=== PATIENT | male | born 1975 | race Caucasian/White ===

== ENCOUNTER 2023-04-18 14:46 | Emergency (ER) | payer BC, MEDICAID ==
--- NOTE | 2023-04-18 14:48 | ERPHSYRPT ---
- History of Present Illness Time Seen by Provider: 04/18/23 14:48 Source: patient Exam Limitations: no limitations Physician History: This is a 48-year-old white male patient who has had worsening tenderness right lower molars over the last few days. He rates his dental pain at 8 out of 10 with associated mild right facial swelling. Patient takes no medications chronically and he has no known drug allergies. Patient does have a ride and she is waiting in the parking lot for him. Patient has not made an appointment to see a dentist. Timing/Duration: gradual onset Severity: mild ENT Location: dental (To moderate right lower molars) Prearrival Treatment: no prearrival treatment Modifying Factors: Improves With: other (Mastication worsens) Associated Symptoms: denies symptoms Allergies/Adverse Reactions: No Known Drug Allergies Allergy (Verified 04/18/23 15:05) Travel Risk - International Travel Have you traveled outside of the country in past 3 weeks: No - Coronavirus Screening Are you exhibiting any of the following symptoms?: No Close contact with a COVID-19 positive Pt in past 14-21 Days: No - Review of Systems Constitutional: No Symptoms Eyes: No Symptoms Ears, Nose, & Throat: Other (Right lower) Respiratory: No Symptoms Cardiac: No Symptoms Abdominal/Gastrointestinal: No Symptoms Genitourinary Symptoms: No Symptoms Musculoskeletal: No Symptoms Skin: No Symptoms Neurological: No Symptoms Psychological: No Symptoms Endocrine: No Symptoms Hematologic/Lymphatic: No Symptoms Immunological/Allergic: No Symptoms All Other Systems: Reviewed and Negative - Past Medical History Pertinent Past Medical History: Yes - Past Surgical History Past Surgical History: Yes - Nursing Vital Signs Nursing Vital Signs: Initial Vital Signs Temperature 97.5 F 04/18/23 14:56 Pulse Rate 91 H 04/18/23 14:56 Blood Pressure 188/103 04/18/23 14:56 O2 Sat by Pulse Oximetry 98 04/18/23 14:56 Pain Scale Pain Intensity 7 - Physical Exam General Appearance: no apparent distress, alert Eye Exam: bilateral eye: normal inspection, PERRL, EOMI Ear Exam: bilateral ear: auricle normal Nasal Exam: normal inspection Throat Exam: dental tenderness, moist mucus membranes Neck Exam: normal inspection, non-tender (Right lower molars), supple, full range of motion Cardiovascular/Respiratory Exam: chest non-tender, no respiratory distress Abdominal Exam: non-tender Neurologic Exam: alert, oriented x 3, cooperative, gas meter prover II-XII nml as tested, normal mood/affect, nml cerebellar function, nml station & gait, sensation nml Skin Exam: normal color, warm, dry SpO2 Interpretation: normal O2 Delivery: Room Air - Course Nursing assessment & vital signs reviewed: Yes - Progress Progress: unchanged, pain not gone completely Progress Note: 04/18/23 15:54 This patient medical issue is 1 of low complexity. The level complex in the workup performed is based on review the patient's past medical history, review the patient's medication list, review the patient's drug allergies, history of present illness and physical findings on examination. This patient's workup does not require any laboratory or radiographic studies. Counseled pt/family regarding: diagnosis, need for follow-up Medical Desision Making - Diagnostic Testing Diagnostic test were ordered, analyzed, and reviewed by me: No - Risk of complications The pt has a mod risk of morbidity or mortality based on: Need for prescription drug management - Departure Departure Disposition: Home Clinical Impression: Pain due to dental caries Condition: Stable Critical Care Time: No Referrals: HUAN SHAH [Primary Care Provider] - Follow up/PCP as directed Additional Instructions: Use ibuprofen 600 mg 3 times a day and Tylenol 650 mg 3 times a day for pain control. Take your antibiotics as prescribed. Call a dentist tomorrow, 04/19/2023, to make arrangements for further evaluation and management for definitive care. Forms: Work/School Release Form Prescriptions: Amoxicillin 500 mg Cap [Amoxil 500 mg] 500 mg PO TID #30 cap
[2023-04-18 15:05] VITALS: BP 188/103; PULSE 91; TEMP 97.5; O2SAT 98
[2023-04-18] MEDS ORDERED: PERCOCET TABLET 5/325MG PO STA (15:48)
[2023-04-18] MEDS ORDERED: AMOXIL 500 MG PO ONE (15:48)
[2023-04-18] MEDS ORDERED: MOTRIN 600 MG PO ONE (15:48)
[2023-04-18] MEDS ORDERED: PERCOCET TABLET 5/325MG ONE (15:56)
[2023-04-18] MEDS ORDERED: AMOXIL 500 MG ONE (15:56)
[2023-04-18] MEDS ORDERED: MOTRIN 600 MG ONE (15:56)
== END 2023-04-18 16:13 | disposition home or self-care (01) ==
LOC: ED 14:46
DX: K02.9 Dental caries, unspecified (principal); K08.89 Other specified disorders of teeth and supporting structures; R22.0 Localized swelling, mass and lump, head
CPT/HCPCS: 99282; A9270-GY